=== PATIENT | female | born 1970 | race Caucasian/White ===

== ENCOUNTER → 2020-09-30 | Outpatient (CLI) | payer MEDICAID ==
[~2020-09-30] MED LIST: DICY20TA3 PO; DOCU-131 PO; FENT1PAT75 TD; LIDOCAINE 1%, 10ML ONE; MAG30ORA PO; MAGN400T50 PO; NICO-486 TD; OMEP20TA62 PO; ONDA4TAB13 SL; OXYC-307 PO; OXYC5TAB3 PO
== END | disposition home or self-care (01) ==
LOC: RAD 09:55
PROVIDERS: ATTEND Internal Medicine Hematology & Oncology
DX: R18.8 Other ascites (principal); C25.0 Malignant neoplasm of head of pancreas; F17.210 Nicotine dependence, cigarettes, uncomplicated; Z88.0 Allergy status to penicillin; Z79.899 Other long term (current) drug therapy; Z72.89 Other problems related to lifestyle; Z82.49 Family history of ischemic heart disease and other diseases of the circulatory system; Z80.8 Family history of malignant neoplasm of other organs or systems
CPT/HCPCS: 49083; 87070; 87205; 88112; 88305; 89051; J3490

== ENCOUNTER 2020-10-07 10:34 | Outpatient (CLI) | payer MEDICAID ==
[~2020-10-07 10:34] MED LIST changes: -LIDOCAINE 1%, 10ML ONE
[2020-10-07] MEDS ORDERED: LIDOCAINE 1%, 10ML ONE ×2 (10:48→11:12)
== END 2020-10-07 23:59 | disposition home or self-care (01) ==
LOC: RAD 10:34
PROVIDERS: ATTEND Internal Medicine Hematology & Oncology
DX: R18.8 Other ascites (principal); C25.0 Malignant neoplasm of head of pancreas; C37 Malignant neoplasm of thymus
CPT/HCPCS: 49083; J3490

== ENCOUNTER → 2020-10-24 | Outpatient (CLI) | payer MEDICAID ==
[~2020-10-24] MED LIST changes: +LIDOCAINE 1%, 10ML ONE
== END | disposition home or self-care (01) ==
LOC: RAD 13:33
PROVIDERS: ATTEND Internal Medicine Hematology & Oncology
DX: R18.0 Malignant ascites (principal); C37 Malignant neoplasm of thymus; F17.210 Nicotine dependence, cigarettes, uncomplicated; Z88.0 Allergy status to penicillin; Z79.899 Other long term (current) drug therapy; Z72.89 Other problems related to lifestyle; Z82.49 Family history of ischemic heart disease and other diseases of the circulatory system
CPT/HCPCS: 49083; J3490

== ENCOUNTER → 2021-06-20 | Outpatient (CLI) | payer MEDICAID ==
[~2021-06-20] MED LIST changes: -DICY20TA3 PO; +DICY20TA4 PO; -LIDOCAINE 1%, 10ML ONE; +LIDOCAINE-MPF 1%, 5ML ONE; -OXYC-307 PO; +OXYC-380 PO; -OXYC5TAB3 PO; +OXYC5TAB98 PO
== END | disposition home or self-care (01) ==
LOC: RAD 12:45
PROVIDERS: ATTEND Internal Medicine Hematology & Oncology
DX: C25.0 Malignant neoplasm of head of pancreas (principal); C37 Malignant neoplasm of thymus
CPT/HCPCS: 49083; 82945; 83615; 84157; 88112; 88305; 89051

== ENCOUNTER 2021-07-04 11:41 | Outpatient (CLI) | payer MEDICAID ==
[~2021-07-04 11:41] MED LIST changes: -LIDOCAINE-MPF 1%, 5ML ONE
[2021-07-04] MEDS ORDERED: LIDOCAINE 1%, 10ML ONE (12:07)
== END 2021-07-04 23:59 | disposition home or self-care (01) ==
LOC: RAD 11:41
PROVIDERS: ATTEND Internal Medicine Hematology & Oncology
DX: R18.8 Other ascites (principal); C25.0 Malignant neoplasm of head of pancreas; C37 Malignant neoplasm of thymus
CPT/HCPCS: 49083; 82945; 83615; 84157; 88112; 88305; 89051; J3490

== ENCOUNTER 2021-08-08 14:38 | Outpatient (CLI) | payer MEDICAID ==
[~2021-08-08 14:38] MED LIST changes: -OXYC-380 PO; +OXYC-501 PO
[2021-08-08] MEDS ORDERED: LIDOCAINE 1%, 10ML ONE (14:51)
== END 2021-08-08 23:59 | disposition home or self-care (01) ==
LOC: RAD 14:38
PROVIDERS: ATTEND Internal Medicine Hematology & Oncology
DX: R18.8 Other ascites (principal); C25.0 Malignant neoplasm of head of pancreas
CPT/HCPCS: 49083; 82945; 83615; 84157; 88112; 89051; J3490

== ENCOUNTER 2021-08-30 10:23 | Emergency (ER) | payer MEDICAID ==
[~2021-08-30] VITALS: Ht 157.5 cm; Wt 47.9 kg
[2021-08-30 10:24] VITALS: BP 91/67
== END 2021-08-30 14:46 | disposition home or self-care (01) ==
LOC: ED 10:33
DX: R10.84 Generalized abdominal pain (principal); R11.2 Nausea with vomiting, unspecified; C25.9 Malignant neoplasm of pancreas, unspecified; E03.9 Hypothyroidism, unspecified; Z87.891 Personal history of nicotine dependence; Z88.0 Allergy status to penicillin
CPT/HCPCS: 36415; 49083; 74177; 80053; 80320; 83690; 85025; 96361; 96374; 96375; 99285; J1170; J2405; J3490; J7030; Q9967